=== PATIENT | male | born 1970 | race Caucasian/White ===

== ENCOUNTER 2020-06-02 20:00 | Emergency (ER) | payer BC ==
[2020-06-02 20:19] LABS: #Basophils 0.1 thou/uL (0.0-0.2); #Eosinphils 0.3 thou/uL (0.0-0.7); #Lymphocytes 3.7 thou/uL (1.20-3.40); #Monocytes 0.7 thou/uL (0.11-0.59); #Neutrophils 4.3 thou/uL (1.40-6.50); %Basophils 1.6 % (0.0-1.0); %Eosinophils 2.9 % (0.0-10.0); %Monocytes 7.8 % (0.0-10.0); %Neutrophils 46.8 % (42.0-75.0); Hemoglobin 15.8 g/dL (14.0-18.0); Mean Corpuscular HGB CONC 32.6 g/dL (32.0-36.0); Mean Corpuscular Hemoglobin 30.5 pg (27.0-31.0); Mean Corpuscular Volume 93.8 fL (78.0-98.0); Mean Platelet Volume 7.7 fL (7.4-10.4); Platelet Count 299 thou/uL (130-400); RBC Distribution Width 11.1 % (11.5-14.5); Red Blood Cell (RBC) Count 5.18 mill/uL (4.70-6.10); White Blood Cell (WBC) Count 9.1 thou/uL (4.8-10.8)
[2020-06-02] MEDS ORDERED: Fentanyl 100 MCG/2 ML VIAL ONE (20:26)
[2020-06-02] MEDS ORDERED: Aspirin Chewable 81 MG TAB ONE (20:26)
[2020-06-02 20:34] LABS: ALT (SGPT) 45 U/L (8-55); AST (SGOT) 37 U/L (5-34); Albumin 4.8 g/dL (3.5-5.0); Alkaline Phosphatase 74 U/L (40-110); Anion Gap 20 mmol/L (10-20); BUN (Urea Nitrogen) 12 mg/dL (8.9-20.6); Bilirubin, Total 0.5 mg/dL (0.2-1.2); Calc. Creatinine Clearance 0 mL/min (70-130); Carbon Dioxide 17 mmol/L (22-29); Chloride 105 mmol/L (98-107); Estimated GFR-MDRD 62; Globulin 3.5 g/dL (2.4-3.5); Glucose 94 mg/dL (70-105); Potassium 3.3 mmol/L (3.5-5.1); Protein, Total 8.3 g/dL (6.0-8.3); Sodium 139 mmol/L (136-145)
[2020-06-02 20:41] LABS: Base Excess-Venous -2.8 mmol/L (-2.0 to 3.0); Bicarbonate (HCO3v) 19.4 mmol/L (22.0-28.0); CO2 Tension (PvCO2) 27.3 mmHg (40.0-50.0); Calcium, Ionized 1.12 mmol/L (See Comments:); Chloride 108 mmol/L (98-107); Hemoglobin - Calc 15.9 g/dL (14.0-18.0); Potassium 3.7 mmol/L (3.5-5.1); Sodium 141 mmol/L (138-145); T. Carbon Dioxide 20.2 mmol/L (22.0-28.0); vO2 Saturation-calc 95.6 % (60.0-85.0)
[2020-06-02 20:52] LABS: CKMB 3.8 ng/mL (0-6.6)
[2020-06-02] MEDS ORDERED: Nitroglycerin 0.4 MG TAB 1 EACH ONE ×2 (20:56)
[2020-06-02] MEDS ORDERED: methylPREDNISolone Sod Succ/PF 125 MG/2 ML VIAL ONE (21:11)
[2020-06-02] MEDS ORDERED: HYDROcodone/Acetaminophen 10/325 mg Tablet ONE (21:11)
--- NOTE | 2020-06-02 22:00 | RAD ---
PORTABLE CHEST: 06/02/20 An AP portable film at 2014 is compared with an 08/28/15 study. This film is taken in expiration. As such, the lung markings are crowded and account for at least ankita e of the streaking in the lungs. If symptoms continue, then a film in deeper inspiration should be ob tained to rule out true infiltrates of pneumonia. There are no effusions. The heart size is normal. IMPRESSION: Expiratory film. No definite findings but see above. POS: HOME
[2020-06-02 22:02] LABS: Platelet Morphology Comment Appears Adequate
[2020-06-02 22:05] LABS: Anisocytosis SLIGHT = 6-15 cells (100X) (0-5/hpf); Polychromasia SLIGHT = 2-3 cells (100X) (0-2/hpf)
[2020-06-02 22:07] LABS: Ovalocytes SLIGHT = 2-5 cells (100X) (0-1/hpf)
== END 2020-06-02 21:10 | disposition home or self-care (01) ==
LOC: BURERS 20:00
DX: M94.0 Chondrocostal junction syndrome [Tietze] (principal); R06.4 Hyperventilation; R07.9 Chest pain, unspecified; I10 Essential (primary) hypertension; E78.00 Pure hypercholesterolemia, unspecified
CPT/HCPCS: 36415; 71045; 80053; 82330; 82435; 82553; 82803; 83880; 84132; 84295; 84484; 85025; 85379; 93005; 94760; 96374; 96375; J2930; J3010

== ENCOUNTER 2020-06-21 15:25 | Emergency (ER) | payer BC ==
[~2020-06-21 15:25] MED LIST: Heparin 10,000 UNITS/ 10 ML VIAL ONE; Metoprolol Tartrate 5 MG/5 ML VIAL ONE; Nitroglycerin 50 MG/250 ML BOT ONE; Sodium Chloride 0.9% (PF) 10 ML VIAL ONE; Sodium Chloride 0.9% 1,000 ML BAG ONE
[2020-06-21] MEDS ORDERED: Morphine 2 MG/ML SYRINGE ONE ×2 (15:38→15:49)
[2020-06-21 15:44] LABS: #Basophils 0.1 thou/uL (0.0-0.2); #Eosinphils 0.3 thou/uL (0.0-0.7); #Lymphocytes 3.4 thou/uL (1.20-3.40); #Monocytes 0.9 thou/uL (0.11-0.59); #Neutrophils 3.8 thou/uL (1.40-6.50); %Basophils 1.4 % (0.0-1.0); %Eosinophils 3.5 % (0.0-10.0); %Lymphocytes 39.6 % (21.0-51.0); %Monocytes 10.6 % (0.0-10.0); Hemoglobin 15.8 g/dL (14.0-18.0); Mean Corpuscular Hemoglobin 29.8 pg (27.0-31.0); Mean Corpuscular Volume 93.2 fL (78.0-98.0); Mean Platelet Volume 7.4 fL (7.4-10.4); Platelet Count 316 thou/uL (130-400); RBC Distribution Width 11.2 % (11.5-14.5); Red Blood Cell (RBC) Count 5.31 mill/uL (4.70-6.10); White Blood Cell (WBC) Count 8.5 thou/uL (4.8-10.8)
[2020-06-21 15:47] LABS: INR-International Normal Ratio 0.9; PTT 25.3 sec (22.9-36.1); Prothrombin Time 12.5 sec (12.0-14.7)
[2020-06-21 15:59] LABS: ALT (SGPT) 37 U/L (8-55); AST (SGOT) 26 U/L (5-34); Albumin 4.6 g/dL (3.5-5.0); Alkaline Phosphatase 77 U/L (40-110); Anion Gap 20 mmol/L (10-20); BUN (Urea Nitrogen) 9 mg/dL (8.9-20.6); Bilirubin, Total 0.4 mg/dL (0.2-1.2); Calc. Creatinine Clearance 0 mL/min (70-130); Calcium 9.6 mg/dL (7.8-10.44); Carbon Dioxide 19 mmol/L (22-29); Chloride 106 mmol/L (98-107); Estimated GFR-MDRD 75; Globulin 3.2 g/dL (2.4-3.5); Glucose 148 mg/dL (70-105); Lipase 42 U/L (8-78); Potassium 3.8 mmol/L (3.5-5.1); Protein, Total 7.8 g/dL (6.0-8.3); Sodium 141 mmol/L (136-145)
[2020-06-21 16:16] LABS: CKMB 2.4 ng/mL (0-6.6)
--- NOTE | 2020-06-21 17:28 | RAD ---
PORTABLE CHEST: 06/21/20 An AP portable film at 1537 is compared with a 06/02/20 study. The heart is unchanged in size. There is no vascular congestion or edema. No lobar consolidation was seen. Given the depth of inspiration, th e lungs are probably clear. If symptoms continue, then an upright PA chest film in good inspiration c ould be helpful for further detail. IMPRESSION: No definite acute finding. POS: HOME
== END 2020-06-21 16:13 | disposition short-term general hospital (02) ==
LOC: BURERS 15:25
DX: I21.3 ST elevation (STEMI) myocardial infarction of unspecified site (principal); I10 Essential (primary) hypertension; E78.00 Pure hypercholesterolemia, unspecified
CPT/HCPCS: 36415; 71045; 80053; 82553; 83690; 84484; 85025; 85610; 85730; 93005; 94760; 96365; 96375; J1644; J2270; J7050